=== PATIENT | male | born 1995 | race Caucasian/White ===

== ENCOUNTER 2023-03-07 01:11 | Emergency (ER) | payer SELFPAY ==
[~2023-03-07] VITALS: Ht 170.2 cm; Wt 91.0 kg
[2023-03-07 02:22] VITALS: BP 136/92; PULSE 78; RESP 18; TEMP 97.8; O2SAT 98
[2023-03-07] MEDS ORDERED: ACETAMINOPHEN 325MG TABLET PO ONE (03:15)
[2023-03-07] MEDS ORDERED: ACET-2708 MT (06:41)
== END 2023-03-07 07:00 | disposition home or self-care (01) ==
LOC: ER 01:11
DX: S00.33XA Contusion of nose, initial encounter (principal); M23.8X2 Other internal derangements of left knee; W18.39XA Other fall on same level, initial encounter; Y93.89 Activity, other specified; Y92.89 Other specified places as the place of occurrence of the external cause; Y99.8 Other external cause status
CPT/HCPCS: 29505; 70486; 73560; 99284